=== PATIENT | female | born 1995 | race Caucasian/White ===

== ENCOUNTER 2019-09-15 23:54 | Emergency (ER) | payer BC ==
[~2019-09-15] VITALS: Ht 162.6 cm; Wt 80.3 kg
[2019-09-16 00:05] VITALS: BP 123/78
--- NOTE | 2019-09-16 00:08 | Emergency Room Report ---
History of Present Illness General Chief Complaint: Seizure Source: Patient Present Illness HPI Patient is a 24-year-old female with brought in by EMS after a witnessed seizure. Patient had approximately 3-minute episode of seizure-like activity. Patient had prior history of seizure disorder for approximately 10 years. She normally takes Keppra and Vimpat. She states she did not take her evening dose. She reports having last seizure approximately 2 months ago. States that she had not slept and was up early this morning. Denies any fever. Denies any recent illness. Reports having mild headache as well as pain to her tongue. States this is normal for her after seizures. Allergies: Coded Allergies: No Known Allergies (Unverified , 09/15/19) Patient History Past Medical History: see triage record, seizures Last Menstrual Period: last month Reviewed Nursing Documentation: PMH: Agreed; PSxH: Agreed Nursing Documentation-PMH Past Medical History: No History, Except For Hx Seizures: Yes Review of Systems All Other Systems: negative except mentioned in HPI Physical Exam Vital Signs Date Time Temp Pulse Resp B/P (MAP) Pulse Ox O2 Delivery O2 Flow Rate FiO2 09/15/19 23:50 98.4 80 16 123/78 (93) 98 Room Air Sp02 EP Interpretation: reviewed, normal General Appearance: normal inspection, well appearing, no apparent distress, alert, GCS 15 Head: atraumatic ENT: normal ENT inspection, hearing grossly normal, normal voice, other - tongue abrasion Neck: normal inspection, full range of motion, supple, no bony tend Respiratory: normal inspection, lungs clear, normal breath sounds, no respiratory distress, no retraction, no wheezing Cardiovascular #1: regular rate, rhythm, no edema Gastrointestinal: normal inspection, normal bowel sounds, non tender, soft, no guarding, no hernia Genitourinary: no CVA tenderness Musculoskeletal: normal inspection, back normal, normal range of motion Neurologic: alert, motor strength/tone normal, 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 Differential diagnosis include was not limited to breakthrough seizure, electrolyte abnormality, subtherapeutic anticonvulsant level among others. Because of complexity of patient's case laboratory tests and imaging studies were ordered. EKG interpreted by me showed normal sinus rhythm with a rate of [address] or T wave changes noted. Patient was given IV fluids as well as pain medications. She was also given IV Keppra due to likely missed dose.She appears to be stable for outpatient management. Patient is given medications for symptomatic discomfort. Patient was advised to follow-up with her neurologist for recheck and to continue taking her medications regularly. Patient appears to have delayed her medications today and therefore had seizure. Patient was advised to follow-up with her neurologist in 1- 2 days return if any worsening of condition or other concerns . This medical record is generated with [employer] homoeopath software. There may be some homoeopath discrepancies related to use of this software Labs Test 09/16/19 00:10 White Blood Count 9.2 K/UL (4.8-10.8) Red Blood Count 4.23 M/UL (4.20-5.40) Hemoglobin 13.7 G/DL (12.0-16.0) Hematocrit 37.6 % (37.0-47.0) Mean Corpuscular Volume 89 FL (80-99) Mean Corpuscular Hemoglobin 32.4 PG (27.0-31.0) Mean Corpuscular Hemoglobin Concent 36.4 G/DL (32.0-36.0) Red Cell Distribution Width 10.5 % (11.6-14.8) Platelet Count 186 K/UL (150-450) Mean Platelet Volume 6.4 FL (6.5-10.1) Neutrophils (%) (Auto) 63.0 % (45.0-75.0) Lymphocytes (%) (Auto) 29.2 % (20.0-45.0) Monocytes (%) (Auto) 6.4 % (1.0-10.0) Eosinophils (%) (Auto) 0.5 % (0.0-3.0) Basophils (%) (Auto) 1.0 % (0.0-2.0) Last Vital Signs Date Time Temp Pulse Resp B/P (MAP) Pulse Ox O2 Delivery O2 Flow Rate FiO2 09/15/19 23:50 98.4 80 16 123/78 (93) 98 Room Air Status: improved Disposition: HOME, SELF-CARE Condition: Stable Faizan Alexis MD Sep 16, 2019 00:08
[2019-09-16] MEDS ORDERED: levETIRAcetam 750 MG in D5W 95 ML IVPB SCH (00:15)
[2019-09-16] MEDS ORDERED: Lacosamide 50mg tablet ORAL ONE (00:15)
[2019-09-16 00:27] LABS: EOSINOPHILS % (AUTO) 0.5 % (0.0-3.0); HEMATOCRIT 37.6 % (37.0-47.0); HEMOGLOBIN 13.7 G/DL (12.0-16.0); LYMPHOCYTES % (AUTO) 29.2 % (20.0-45.0); MEAN CORPUSCULAR VOLUME 89 FL (80-99); MONOCYTES % (AUTO) 6.4 % (1.0-10.0); PLATELET COUNT 186 K/UL (150-450); RED BLOOD COUNT 4.23 M/UL (4.20-5.40); RED CELL DISTRIBUTION WIDTH 10.5 % (11.6-14.8); WHITE BLOOD COUNT 9.2 K/UL (4.8-10.8)
[2019-09-16 00:31] LABS: ANION GAP 9 mmol/L (5-15); BLOOD UREA NITROGEN 10 mg/dL (7-18); CALCIUM 8.6 MG/DL (8.5-10.1); CARBON DIOXIDE 28 MMOL/L (21-32); CHLORIDE 105 MMOL/L (98-107); CREATININE 0.9 MG/DL (0.55-1.30); POTASSIUM 3.6 MMOL/L (3.5-5.1); SODIUM 142 MMOL/L (136-145)
[2019-09-16 00:36] LABS: ALANINE AMINOTRANSFERASE 19 U/L (12-78); ALBUMIN 3.5 G/DL (3.4-5.0); ALKALINE PHOSPHATASE 45 U/L (46-116); ASPARTATE AMINO TRANSFERASE 13 U/L (15-37); BILIRUBIN,TOTAL 0.9 MG/DL (0.2-1.0)
[2019-09-16] MEDS ORDERED: Acetaminophen 500mg (ES) tab ORAL ONE (00:45)
[2019-09-16] MEDS ORDERED: Lidocaine 2% Visc 15ml soln ORAL ONE (00:45)
[2019-09-16 01:40] VITALS: BP 123/78
== END 2019-09-16 01:40 | disposition home or self-care (01) ==
LOC: EDBD 23:54 → EMR 09-16 00:10
DX: G40.909 Epilepsy, unspecified, not intractable, without status epilepticus (principal); S00.512A Abrasion of oral cavity, initial encounter; X58.XXXA Exposure to other specified factors, initial encounter; R51 Headache
CPT/HCPCS: 36415; 80053; 85025; 93005; 96365; 96366; 99284; J1953